=== PATIENT | male | born 1970 | race Caucasian/White ===

== ENCOUNTER 2018-08-18 07:48 | Day surgery (SDC) | payer BC ==
[2018-08-16 16:04] VITALS: BMI 29.0
[~2018-08-18 07:48] MED LIST: DEXAMETHASONE SOD PHOSPHATE 10 MG/ML 1 ML VIAL IV ONE; DEXAMETHASONE SOD PHOSPHATE 4 MG/ML 1 ML VIAL IV ONE; FAMOTIDINE 20 MG/2 ML VIAL IV ONE; HYDROmorphone 0.5 MG/0.5 ML SYRINGE IVP PRN; LACTATED RINGERS 1,000 ML IV SCH; MIDAZOLAM 2 MG/2 ML VIAL IV PRN; ONDANSETRON 4 MG/2 ML VIAL IVP ONE; SCOPOLAMINE 1.5MG/72HR PATCH TRANSDERM ONE
[2018-08-18] MEDS: OXYMETAZOLINE 0.05% NASL SPRAY 1 SPRAY BOTTLE NASAL ONE ×7 (08:11→08:29)
[2018-08-18 08:15] VITALS: RESP 16
[2018-08-18] MEDS: ONDANSETRON 4 MG/2 ML VIAL IVP ONE ×2 (08:16→08:23)
[2018-08-18] MEDS ORDERED: fentaNYL (PF) 50 MCG/ML 2 ML AMP ONE (08:43)
[2018-08-18] MEDS ORDERED: SUCCINYLCHOLINE CHLORIDE 100 MG/5 ML SYR IV ONE (08:43)
[2018-08-18] MEDS ORDERED: PROPOFOL 10 MG/ML 20 ML VIAL IV ONE (08:43)
[2018-08-18] MEDS ORDERED: DEXAMETHASONE SOD PHOS (MDV) 100 MG/10 ML VIAL ONE (08:43)
[2018-08-18] MEDS ORDERED: MIDAZOLAM 2 MG/2 ML VIAL ONE (08:43)
[2018-08-18] MEDS ORDERED: LIDOCAINE 1% INJ 10MG/ML (20 ML MDV) ONE (08:43)
[2018-08-18] MEDS ORDERED: BUPIVACAIN-EPI 0.5%-1:200,000 30 ML VIAL SQ ONE ×2 (09:03)
[2018-08-18] MEDS ORDERED: LIDOCAINE 1%-EPI 1:100,000 20 ML VIAL SQ ONE ×2 (09:03)
[2018-08-18 09:39] VITALS: TEMP 97.3
--- NOTE | 2018-08-18 09:41 | P.OP ---
Date of Procedure: 08/18/18 Preoperative Diagnosis: Eustachian tube dysfunction Chronic mastoiditis Chronic otitis media with effusion Hearing loss Bilateral hypertrophy of the inferior nasal turbinates Postoperative Diagnosis: Same Procedure(s) Performed: Bilateral direct microscopic tympanostomy and tube placement utilizing triune tubes Bilateral submucosal resection of the inferior turbinates with outfracturing compression Bilateral middle ear lavage Anesthesia: QUAN Surgeon: Victor Manuel Castanon Estimated Blood Loss (ml): 2 Pathology: none sent Condition: stable Disposition: PACU Indications for Procedure: This patient suffers from chronic eustachian tube dysfunction and has developed mastoid fluid. He has failed medical therapy and tympanostomy tube placement along with the balloon eustachian tuboplasty turbinate reduction in the middle ear lavage was planned. The balloon eustachian tuboplasty was denied by the insurance and the patient wished to proceed forward with the other procedures planned. All risks, benefits, and alternative therapies were discussed. Consent was obtained and all questions were answered. Operative Findings: Patient had bilateral middle ear effusions with some middle ear edema. Inferior turbinates were large and obstructive Description of Procedure: Prior to surgery, all risks, benefits, and alternative therapies were discussed again with the patient and family. Risks of bleeding, need for second tubes, perforation, early extrusion of tubes, etc. etc. were explained. All questions were answered and a consent was obtained. This patient was taken to the operative room and placed in the supine position. Mask inhalation anesthesia was performed by the department of anesthesia. The patient was monitored throughout the entire case by the department of anesthesia. Both tympanic membranes were visualized with an operating Zeiss microscope. Cerumen and epithelial debris was removed from the external auditory canals bilaterally. The tympanic membranes were visualized under an operative microscope. Tympanostomy incisions were made inferiorly. Fluid was suctioned from the middle ear space with use of a #3 and #5 Mccann suction with care to avoid any trauma to the middle ear structures. Ventilation tubes were then inserted bilaterally. We used triune tubes bilaterally. Excellent placement was obtained. The middle ear was lavaged with a 50% Betadine and saline solution. This was done bilaterally. Attention was then paid to the inferior turbinates. The bilateral inferior turbinates were hypertrophic and obstructive. We entered the anterior portion of the inferior turbinates with use of a microdebrider. We remove bone and submucosal elements with use of a microdebrider bilaterally. The inferior turbinates underwent a submucosal resection with removal of submucosal tissue and bone. We obtained a much better and normal in size for breathing. The inferior turbinates were then outfractured and compressed with a Webtrekkes nasal elevator. Excellent airway was obtained and was symmetric bilaterally. No bleeding was encountered. The patient was then taken to the recovery room in excellent condition by the department of anesthesia and monitored through the recovery process by the recovery room nurse supervised by anesthesia. A follow-up appointment has been scheduled.
[2018-08-18 10:43] VITALS: BP 113/77; PULSE 53
== END 2018-08-18 11:10 | disposition home or self-care (01) ==
LOC: OR 07:48
PROVIDERS: ATTEND Otolaryngology
DX: H70.13 Chronic mastoiditis, bilateral (principal); H65.493 Other chronic nonsuppurative otitis media, bilateral; H91.92 Unspecified hearing loss, left ear; H69.90 Unspecified Eustachian tube disorder, unspecified ear; J34.3 Hypertrophy of nasal turbinates; Z82.49 Family history of ischemic heart disease and other diseases of the circulatory system; Z91.09 Other allergy status, other than to drugs and biological substances
CPT/HCPCS: 69436; 30140; J2250; J1100 ×2; J2405; J2001; J3010; J0330; J2704

== ENCOUNTER → 2022-02-09 | Outpatient (CLI) | payer OTHER ==
--- NOTE | 2022-02-09 16:02 | XR ---
Left knee HISTORY: Left knee sprain, trauma 4 days prior, pain 3 views the left knee There is an enthesophyte at insertion of the quadriceps tendon. Bone mineralization, joint spaces, al ignment are maintained. No sizable joint effusion. No fracture or dislocation. IMPRESSION: No acute abnormality, consider MRI left knee.
== END | disposition home or self-care (01) ==
LOC: RADXRMAIN 15:34
PROVIDERS: ATTEND Emergency Medicine
DX: S83.92XA Sprain of unspecified site of left knee, initial encounter (principal); X58.XXXA Exposure to other specified factors, initial encounter

== ENCOUNTER → 2022-02-13 | Outpatient (CLI) | payer OTHER ==
--- NOTE | 2022-02-14 03:49 | MR ---
EXAMINATION TYPE: MR knee LT wo con DATE OF EXAM: 02/13/2022 COMPARISON: None HISTORY: Lt knee pain and swelling behind knee and in kneecap due to a fall on February 05, 2022 Multiplanar multiecho imaging of the left knee with no contrast. The anterior and posterior cruciate ligaments appear intact. There is a xuxt-or-slakhabh knee joint e ffusion. The collateral ligaments appear intact. There is a small vertical tear through the posterior horn medial meniscus extending to the inferior s urface. Lateral meniscus shows vertical tear through the anterior horn extending to the superior and inferior surfaces. No evidence for fracture. No bone edema. Patella is intact. IMPRESSION: Small tear in the posterior horn medial meniscus. Vertical tear through the anterior horn of the late ral meniscus. No evidence of ligamentous tear. Knee joint effusion. There is some degenerative thinni ng of the lateral meniscus and mild lateral joint space narrowing.
== END | disposition home or self-care (01) ==
LOC: RADMRIMAIN 11:20
PROVIDERS: ATTEND Emergency Medicine
DX: S83.282A Other tear of lateral meniscus, current injury, left knee, initial encounter (principal); S83.242A Other tear of medial meniscus, current injury, left knee, initial encounter; X58.XXXA Exposure to other specified factors, initial encounter

== ENCOUNTER 2022-03-26 10:01 | Day surgery (SDC) | payer BC, OTHER ==
--- NOTE | 2022-03-25 10:23 | P.HPOR ---
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 He slipped on some fiberglass. He twisted his knee. He has been having pain along with swelling and intermittent locking and buckling ever since. Review of Systems As per HPI Past Medical History Past Medical History: GERD/Reflux, Hearing Disorder / Deafness, Musculoskeletal Disorder Additional Past Medical History / Comment(s): past hx. pancreatitis, migraine HEADACHES, SENECA, seasonal allergies History of Any Multi-Drug Resistant Organisms: MRSA Date of last positivie culture/infection: 2001 MDRO Source:: Lip Past Surgical History: Ear Surgery, Heart Catheterization, Orthopedic Surgery Additional Past Surgical History / Comment(s): left Knee Arthroscopy x2, EGD, andrés. tubes in ears Past Anesthesia/Blood Transfusion Reactions: No Reported Reaction Smoking Status: Never smoker - Past Family History Mother Family Medical History: Cancer Additional Family Medical History / Comment(s): SKIN CANCER Medications and Allergies Home Medications Medication Instructions Recorded Confirmed Type Butalb/APAP/Caff 50-325-40Mg 1 tab PO Q4H PRN 03/25/22 03/25/22 History [Fioricet 50-325-40] Omeprazole [PriLOSEC] 20 mg PO QAM 03/25/22 03/25/22 History busPIRone HCL [Buspar] 7.5 mg PO DAILY 03/25/22 03/25/22 History Allergies Allergy/AdvReac Type Severity Reaction Status Date / Time No Known Allergies Allergy Verified 03/25/22 08:39 Physical Examination - Knee left Appearance: effusion Effusion grade: trace Pain: with flexion Gait: limping ROM: extension: -10 degrees ROM: flexion: 110 degrees Strength: extension: 5/5 Strength: flexion: 5/5 Meniscal tests: medial meniscal tests: positive Results The patient is a well-developed well-nourished male of mesomorphic habitus. HEENT exam is nonfocal, neck is supple. He has painless passive motion of his left hip. Straight leg raise is negative. On examination of his left knee, he is tender over the medial joint line. Collaterals are stable, Carmen was negative, Bertrand's causes medial pain. His distal neurovascular appears intact left lower extremity. - Diagnostic results Knee MRI: image reviewed (Left knee MRI shows evidence of a posterior medial meniscal tear, anterior lateral meniscal tear) Assessment and Plan Assessment: Left knee internal derangement/symptomatic medial meniscal tear Left knee mild medial compartment osteoarthrosis Plan: I talked to the patient at length regarding his condition along with treatment options. At this point is quite symptomatic having pain and mechanical symptoms after this acute injury. After a thorough discussion he opts to proceed with surgery. Risks and benefits were discussed at length in layman's terms. We will likely perform a left knee arthroscopy with partial medial meniscectomy as an outpatient procedure. Time with Patient: Less than 30
[~2022-03-26 10:01] MED LIST changes: -DEXAMETHASONE SOD PHOSPHATE 10 MG/ML 1 ML VIAL IV ONE; -FAMOTIDINE 20 MG/2 ML VIAL IV ONE; +SCOPOLAMINE 1 MG/72 HR PATCH TRANSDERM ONE; -SCOPOLAMINE 1.5MG/72HR PATCH TRANSDERM ONE
[2022-03-26] MEDS ORDERED: LIDOCAINE 1% (10MG/ML) FOR IV START INTRADERMA ONE (10:20)
[2022-03-26] MEDS ORDERED: SUCCINYLCHOLINE CHLORIDE 200 MG/10 ML VIAL IV ONE (11:17)
[2022-03-26] MEDS ORDERED: fentaNYL (PF) 50 MCG/ML 2 ML AMP ONE (11:17)
[2022-03-26] MEDS ORDERED: MIDAZOLAM 2 MG/2 ML VIAL ONE (11:17)
[2022-03-26] MEDS ORDERED: ROCURONIUM 10 MG/ML (5 ML VIAL) IV ONE (11:17)
[2022-03-26] MEDS ORDERED: PROPOFOL 10 MG/ML 20 ML VIAL IV ONE (11:17)
[2022-03-26] MEDS ORDERED: EPINEPHrine (PF) 1 ML in SODIUM CHLORIDE 0.9% IRRIGATIO 3,000 ML IRRIGATION ONE ×4 (11:23)
--- NOTE | 2022-03-26 12:05 | P.OP ---
Date of Procedure: 03/26/22 Preoperative Diagnosis: Left knee internal derangement Postoperative Diagnosis: Left knee posterior medial meniscal tear/anterior lateral meniscal tear Procedure(s) Performed: Left knee arthroscopic partial medial and lateral meniscectomies Anesthesia: JORGEA Surgeon: Taz Lopez Estimated Blood Loss (ml): 10 Pathology: none sent Condition: stable Disposition: PACU Indications for Procedure: The patient's a 51-year-old male who presents with progressive left knee pain and mechanical symptoms after an acute injury at work. A discussion of the risks and benefits of operative intervention versus conservative measures was made with patient. He opted to proceed with surgery. Operative risks to include infection, neurovascular injury, development of blood clots, possible incomplete resolution of symptoms, possible worsening symptoms and need for subsequent procedures was discussed. Informed consent was obtained. Operative Findings: As below Description of Procedure: The patient was brought to the operating room, and after induction of general anesthesia examined the left knee. Collaterals were stable, Carmen was negative, and posterior drawer was negative. The left lower extremity was prepped and draped in a normal fashion. A superior lateral portal was made through a 3 mm skin incision superior and lateral to the patella. This was used for outflow. A lateral portal was made through a 5 mm vertical skin incision lateral to the patella tendon above the joint line. Diagnostic arthroscopy was performed. On inspection of the medial compartment, and oblique tear involving the posterior horn medial meniscus was noted in the white-white junction. This was debrided back to a stable base with straight baskets and a motorized shaver. On inspection of the notch, the anterior cruciate ligament appeared to be intact. On inspection of the lateral compartment, a complex tear involving the anterior horn lateral meniscus was noted in the white-red junction. This was debrided back to stable base with straight baskets and a motorized shaver. The posterior horn appeared to be intact.. On inspection of the patellofemoral articulation, no significant cartilage pathology was noted.. The gutters were clear debris. The knee was then thoroughly irrigated. The portals were closed with Steri-Strips. A sterile dressing was applied in addition to a compression stocking. The patient was awoken from general anesthesia and transferred to recovery room in good condition. Blood loss was estimated at 10 mL. No complications were incurred.
[2022-03-26 12:29] VITALS: TEMP 97.5
[2022-03-26] MEDS ORDERED: HYDROcodone/APAP 5-325MG 1 EACH TAB ONE (13:13)
[2022-03-26] MEDS ORDERED: HYDROcodone/APAP 5-325MG 1 EACH TAB PO ONE (13:14)
[2022-03-26 13:49] VITALS: BP 119/79; PULSE 61; RESP 18
== END 2022-03-26 14:04 | disposition home or self-care (01) ==
LOC: OR 10:01
PROVIDERS: ATTEND Orthopaedic Surgery
DX: S83.242A Other tear of medial meniscus, current injury, left knee, initial encounter (principal); S83.282A Other tear of lateral meniscus, current injury, left knee, initial encounter; X50.1XXA Overexertion from prolonged static or awkward postures, initial encounter; K21.9 Gastro-esophageal reflux disease without esophagitis; H91.90 Unspecified hearing loss, unspecified ear; Z87.19 Personal history of other diseases of the digestive system; G43.909 Migraine, unspecified, not intractable, without status migrainosus; J30.2 Other seasonal allergic rhinitis; Z86.14 Personal history of Methicillin resistant Staphylococcus aureus infection; Z98.890 Other specified postprocedural states; Z80.8 Family history of malignant neoplasm of other organs or systems; Z79.899 Other long term (current) drug therapy
CPT/HCPCS: 29880; J2250; J0330; J1100; J0690; J2405; J0171; J3010; J2704

== ENCOUNTER → 2022-10-22 | Outpatient (CLI) | payer OTHER ==
--- NOTE | 2022-10-22 10:05 | XR ---
EXAMINATION TYPE: XR shoulder complete RT DATE OF EXAM: 10/22/2022 CLINICAL HISTORY: Trauma injury with pain TECHNIQUE: Three views of the right shoulder are obtained. COMPARISON: Right shoulder x-ray 2013 FINDINGS: There is no acute fracture/dislocation evident in the right shoulder. The acromioclavicul ar and glenohumeral joint spaces appear stable and within normal limits. The visualized ribs are int act and unremarkable. IMPRESSION: There is no acute fracture or dislocation in the right shoulder.
== END | disposition home or self-care (01) ==
LOC: RADXRMAIN 09:45
PROVIDERS: ATTEND Emergency Medicine
DX: S46.911A Strain of unspecified muscle, fascia and tendon at shoulder and upper arm level, right arm, initial encounter (principal); X58.XXXA Exposure to other specified factors, initial encounter

== ENCOUNTER → 2022-11-19 | Outpatient (CLI) | payer OTHER ==
--- NOTE | 2022-11-19 09:15 | MR ---
EXAMINATION TYPE: MR shoulder RT wo con DATE OF EXAM: 11/19/2022 COMPARISON: Radiograph 10/22/2022 HISTORY: 51-year-old male [id number] STRAIN UNSP MUSC/FASC/TEND, Right shoulder pain due to injury. TECHNIQUE: Multiplanar, multisequence imaging of the right shoulder is performed without contrast. FINDINGS: There is either interstitial or partial split tear of the intracapsular portion of the long head jessie ps tendon. There is slight thickening of the adjacent coracohumeral ligament up to 4 mm. Some degenerative signal of the adjacent superior labrum. No discrete labral tear or paralabral cyst by nonarthrographic technique. The glenohumeral joint is intact. There is mild thinning of mid glenoid articular cartilage and infer ior humeral head articular cartilage. The joint is otherwise intact without significant joint effusio n. There is moderate degenerative change at the AC joint. However, there is capsular swelling and capsul ar edema and trace effusion. Some degenerative subchondral signal change noted at the AC joint as wel l. No abnormal signal within the coracoclavicular ligaments. The hypertrophied capsule indents the un derlying myotendinous junction of the supraspinatus. There is a trace effusion in the subacromial/subdeltoid bursa with bursal sided fraying and scattered intrasubstance change along the supraspinatus tendon. Some additional articular sided fraying is als o present at the junction of the infraspinatus tendons. Heterogeneity and thickening of both supra and infraspinatus and infraspinatus tendons. Additional h eterogeneous signal of the subscapularis tendon. No high-grade partial or full-thickness tear is identified of the rotator cuff. No atrophy of the ro tator cuff musculature. No Hill-Sachs deformity or os acromiale. No suspicious bone marrow replacement. IMPRESSION: 1. Moderate diffuse rotator cuff tendinosis. No high-grade partial or full-thickness rotator cuff tea r. We do note prominent bursal sided fraying along the supraspinatus tendon as well as some areas of intrasubstance change. 2. Moderate AC joint OA but with prominent capsular swelling and edema. Findings could represent acut e exacerbation of underlying OA versus a low-grade AC joint sprain. Correlate for any point tendernes s. 3. Some mass effect onto the underlying cuff from the thickened AC joint may contribute to symptoms o f subacromial impingement. 4. Either an interstitial versus partial split tear of the intracapsular portion of the long head bic eps tendon. Slight thickening of the adjacent coracohumeral ligament could reflect a mild sprain of t he biceps nicolas.
== END | disposition home or self-care (01) ==
LOC: RADMRIMAIN 07:44
PROVIDERS: ATTEND Emergency Medicine
DX: S46.911D Strain of unspecified muscle, fascia and tendon at shoulder and upper arm level, right arm, subsequent encounter (principal); M19.011 Primary osteoarthritis, right shoulder; M67.813 Other specified disorders of tendon, right shoulder

== ENCOUNTER → 2023-02-11 | Day surgery (SDC) | payer BC, OTHER ==
[2023-02-08 14:31] VITALS: BMI 29.7
--- NOTE | 2023-02-10 08:23 | P.HPOR ---
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 He is having persistent pain with overhead use and at night ever since. He's tried conservative measures with therapy and medications with exacerbation of his symptoms. Review of Systems As per HPI Past Medical History Past Medical History: GERD/Reflux, Hearing Disorder / Deafness Additional Past Medical History / Comment(s): pancreatitis, HEADACHES, [place]I, TORN RT BICEP History of Any Multi-Drug Resistant Organisms: MRSA Date of last positivie culture/infection: 2001 MDRO Source:: Lip Past Surgical History: Cholecystectomy, Ear Surgery, Heart Catheterization, Orthopedic Surgery Additional Past Surgical History / Comment(s): left Knee Arthroscopy x2, EGD Past Anesthesia/Blood Transfusion Reactions: No Reported Reaction Smoking Status: Never smoker - Past Family History Mother Family Medical History: Cancer Additional Family Medical History / Comment(s): SKIN CANCER Medications and Allergies Home Medications Medication Instructions Recorded Confirmed Type Omeprazole [PriLOSEC] 20 mg PO DAILY 03/25/22 02/08/23 History busPIRone HCL [Buspar] 7.5 mg PO BID 03/25/22 02/08/23 History Butalb/Acetaminophen/Caffeine 1 cap PO QID PRN 09/08/22 02/08/23 History [Fioricet 50-300-40 mg Capsule] SUMAtriptan succinate [Imitrex] 25 mg PO BID PRN MDD 50mg 09/08/22 02/08/23 History Acetaminophen Tab [Tylenol] 650 mg PO Q6H #30 tab 09/22/22 02/08/23 Rx Ibuprofen [Motrin] 600 mg PO Q6HR PRN #40 tab 09/22/22 02/08/23 Rx Allergies Allergy/AdvReac Type Severity Reaction Status Date / Time No Known Allergies Allergy Verified 02/08/23 14:21 Physical Examination - Shoulder right Tenderness with palpation: anterior Pain: with abduction, with forward flexion ROM: forward flexion: 140 degrees ROM: internal rotation: lower lumbar ROM: external rotation: 40 degrees Crepitus with motion: Yes Strength: abduction: 5/5 (5-/5) Strength: external rotation: 5/5 (5-/5) Tests: internal impingement tests: positive, external impingment tests: positive Results The patient is a well-developed well-nourished male approximate 5 foot 6, 180 pounds of endomorphic habitus. HEENT exam is nonfocal, neck supple. On the right shoulder is tender about the anterior subacromial space in the bicipital groove. He has moderate crepitus. Impingement, Neer, and speed test are positive. His distal neurovascular exam appears intact in the right upper extremity. - Diagnostic results Shoulder MRI: image reviewed (Right shoulder MRI is reviewed and shows evidence of a bursal surface supraspinatus partial tear along with proximal biceps split tear.) Assessment and Plan Assessment: Right rotator cuff strain/possible partial-thickness tear Right proximal bicipital partial tear Plan: I talked to the patient regarding his condition along with treatment options. He's having persistent symptoms after this acute injury despite conservative measures. After thorough discussion he opts to proceed with surgery. We'll plan to proceed with right shoulder arthroscopic evaluation with probable subacromial decompression, rotator cuff debridement versus repair, possible biceps tenodesis versus tenotomy.
[~2023-02-11] MED LIST changes: +EPINEPHrine (PF) 1 ML in SODIUM CHLORIDE 0.9% IRRIGATIO 3,000 ML IRRIGATION ONE; +GLYCOPYRROLATE 0.2 MG/ML 2 ML VIAL ONE; +LACTATED RINGERS 1,000 ML IV ONE; +LIDOCAINE 1% (10MG/ML) FOR IV START INTRADERMA PRN; +LIDOCAINE 2% INJ 20 MG/ML (2 ML VIAL) ONE; +MIDAZOLAM 2 MG/2 ML VIAL IVP ONE; +MIDAZOLAM 2 MG/2 ML VIAL ONE; +NEOSTIGMINE 1 MG/ML 10 ML VIAL ONE; +PROPOFOL 10 MG/ML 20 ML VIAL IV ONE; +ROCURONIUM 10 MG/ML (5 ML VIAL) IV ONE; +ROPIVACAINE 5 MG/ML 30 ML VIAL ONE; -SCOPOLAMINE 1 MG/72 HR PATCH TRANSDERM ONE; +SUCCINYLCHOLINE CHLORIDE 200 MG/10 ML VIAL IV ONE; +ePHEDrine 50 MG/ML 1 ML VIAL ONE; +fentaNYL (PF) 50 MCG/ML 2 ML AMP IVP ONE
--- NOTE | 2023-02-11 09:03 | P.OP ---
Date of Procedure: 02/11/23 Preoperative Diagnosis: Right rotator cuff partial thickness tear/proximal biceps partial tear Postoperative Diagnosis: High-grade bursal surface tear anterior supraspinatus, partial-thickness tear intra-articular portion long head of the biceps Procedure(s) Performed: Right shoulder arthroscopic subacromial decompression/biceps tenodesis/rotator cuff repair Implants: Arthrex 4.75 mm swivel lock anchor 3 Anesthesia: JORGE, regional Surgeon: Taz Lopez Can Sterilizer #1: Dane Enamorado Estimated Blood Loss (ml): 10 Pathology: none sent Condition: stable Disposition: PACU Indications for Procedure: The patient's a 52-year-old male who presents with right shoulder pain and weakness after a previous acute injury. A discussion of the risks and benefits of operative intervention versus continued conservative measures was made with patient. He opted to proceed with surgery. Operative risks to include infection, neurovascular injury, development of blood clots, tendon rerupture, postoperative stiffness, and possible need for subsequent procedures was discussed. Informed consent was obtained. Operative Findings: As below Description of Procedure: The patient was brought to the operating room, and after induction of general anesthesia was placed in a beachchair position. A preoperative interscalene block was placed for postoperative analgesia. I examined the right shoulder. There was no gross block to passive motion or gross glenohumeral instability. The right upper extremity was prepped and draped in normal fashion. The bony outlines the acromion, distal clavicle, and coracoid process were outlined with a skin marker. The glenohumeral joint was inflated with 50 mL of saline utilizing a spinal needle from posterior approach. A posterior portal was made through a 5 mm skin incision 1 cm medial and inferior to the posterior lateral border time. A blunt trocar was used to easily into the joint. Diagnostic arthroscopy was performed. An anterior portal was made just lateral to the coracoid process entering the joint above the subscapularis tendon. The subscapularis tendon appeared to be intact. Anterior labrum was intact. The inferior recess was inspected. The posterior labrum was intact. There was a high-grade partial-thickness tear of the long head of the biceps involving interarticular portion. It was elected to proceed with tenodesis at this point. The biceps was captured with a loop intact technique. This was released from the superior labrum with electrocautery and was allowed to retract to the bicipital groove. This was tenodesed to the upper bicipital groove utilizing a 4.75 mm swivel lock anchor with good purchase. On inspection the rotator cuff, a high-grade partial-thickness tear involving the anterior aspect the supraspinatus was noted. This involved approximately 40% of the tendon thickness. The arthroscope was placed into the subacromial space. A lateral portal was made 2 centimeters inferior to the anterior lateral border of the acromion. The soft tissue on the undersurface of the acromion was debrided with a motorized shaver and electrocautery clearly defining the anterior medial and lateral borders as well as the distal clavicle. An anterior inferior acromioplasty was performed with a motorized leona starting anterolateral, then extending this posteriorly, then extending this medially. I converted to a flat acromion and this was verified in the posterior and lateral viewing portals. The rotator cuff was inspected. The anterior supraspinatus was partially torn on the bursal surface as well involving approximately 40% of the tendon thickness. The tear was completed with a motorized shaver. This measured approximately 1 cm. The greater tuberosity was lightly decorticating with a shaver down to a bleeding bony surface. An accessory superior lateral portal was made just off the lateral edge of the acromion for anchor placement. A 4.75 mm swivel lock anchor was then placed just off the articular surface with the appropriate starting awl. The preloaded #2 fiber tape was passed through the rotator cuff with a scorpion suture passer. A fiber link was placed as well. A 4.75 mm swivel lock anchor was placed laterally with good purchase utilizing the sutures. Final arthroscopic view showed adequate compression at the footprint. The arthroscope was then removed. The portals were closed with simple 3-0 nylon sutures. A sterile dressing was applied in addition to an abductor brace. The patient was then awoken from general anesthesia and transferred to recovery room in good condition. Blood loss was estimated at 10 mL. No complications were incurred. Sponge and needle counts were correct in the case. Dane DURAN assisted and the major components of the case to include arm positioning, anchor placement, and rotator cuff repair.
[2023-02-11 09:10] VITALS: TEMP 98
[2023-02-11 09:17] VITALS: RESP 16
[2023-02-11 10:10] VITALS: BP 128/77; PULSE 53
--- NOTE | 2023-02-11 17:26 | P.ANPRN ---
Procedure Note - Anesthesia - Nerve Block Performed Right Interscalene Time Out Performed: Yes (06:54) Date of Procedure: 02/11/23 Procedure Start Time: 54 Procedure Stop Time: :59 Location of Patient: PreOp Indication: Acute Post-Operative Pain, Requested by Surgeon (DR Lopez) Sedation Type: Sedate with meaningful contact maintained Preparation: Sterile Prep Position: Supine Catheter: None Needle Types: Pajunk Needle Gauge: Other (see comment) (22g) Ultrasound used to visualize needle placement: Yes Ultrasound used to observe medication spread: Yes Injectate: 0.5% Ropivacaine (see comment for volume) (20cc) Blood Aspirated: No Pain Paresthesia on Injection Noted: No Resistance on Injection: Normal Image Stored and Saved: Yes Events: Uneventful and Well Tolerated
== END | disposition home or self-care (01) ==
LOC: OR 05:40
PROVIDERS: ATTEND Orthopaedic Surgery
DX: S46.221A Laceration of muscle, fascia and tendon of other parts of biceps, right arm, initial encounter (principal); M75.111 Incomplete rotator cuff tear or rupture of right shoulder, not specified as traumatic; M75.41 Impingement syndrome of right shoulder; G89.18 Other acute postprocedural pain; K21.9 Gastro-esophageal reflux disease without esophagitis; Z90.49 Acquired absence of other specified parts of digestive tract; Z79.899 Other long term (current) drug therapy; X58.XXXA Exposure to other specified factors, initial encounter
CPT/HCPCS: 64415; 29827; 29826; 29828; C1713 ×3; C1894; J2250; J0330; J1100; J2710; J0690; J2405; J0171; J3010; J2795; J2704; J2001

== ENCOUNTER → 2023-10-13 | Outpatient (CLI) | payer OTHER ==
--- NOTE | 2023-10-13 14:37 | XR ---
EXAMINATION TYPE: XR chest 2V DATE OF EXAM: 10/13/2023 COMPARISON: NONE TECHNIQUE: PA and lateral views submitted. HISTORY: Cough and fever FINDINGS: The lungs are clear and there is no pneumothorax, pleural effusion, or focal pneumonia. Heart size normal and no overt failure. Osseous structures intact. IMPRESSION: 1. No acute process.
== END | disposition home or self-care (01) ==
LOC: RADXRMAIN 13:42
PROVIDERS: ATTEND Internal Medicine
DX: R05.1 Acute cough (principal); R50.9 Fever, unspecified
CPT/HCPCS: 71046

== ENCOUNTER 2024-03-24 14:26 | Emergency (ER) | payer OTHER ==
[2024-03-24] MEDS: diphenhydrAMINE 50 MG/ML 1 ML VIAL IVP STA (15:20)
[2024-03-24] MEDS: KETOROLAC 15 MG/ML 1 ML VIAL IVP STA (15:20)
[2024-03-24] MEDS: METOCLOPRAMIDE 5 MG/ML 2 ML VIAL IVP STA (15:21)
[2024-03-24] MEDS: ACETAMINOPHEN TAB 500 MG TAB PO STA (15:22)
[2024-03-24] MEDS: MAGNESIUM SULFATE-D5W PMX 1 GM in DEXTROSE/WATER 1 100ML.BAG IVPB ONE (15:24)
--- NOTE | 2024-03-24 15:57 | ED ---
General Adult HPI - General Chief complaint: Headache Stated complaint: migraine Time Seen by Provider: 03/24/24 14:58 Source: patient Mode of arrival: ambulatory Limitations: no limitations - History of Present Illness Initial comments: Patient is a 53-year-old gentleman past medical history migraine headaches presenting today for migraine. Patient states is ongoing for the last 3 days. He has tried his home Fioricet and tracks without relief from his headache. States it feels like a screwdriver going into the right side of his head. Feels like prior migraines. Endorses nausea but no vomiting. No changes in vision, numbness weakness or slurred speech. No fevers or neck stiffness. No chest pain, shortness of breath abdominal pain or vomiting. - Related Data Home Medications Medication Instructions Recorded Confirmed Omeprazole [PriLOSEC] 20 mg PO DAILY 03/25/22 02/11/23 busPIRone HCL [Buspar] 7.5 mg PO BID 03/25/22 02/11/23 Butalb/Acetaminophen/Caffeine 1 cap PO QID PRN 09/08/22 02/11/23 [Fioricet 50-300-40 mg Capsule] SUMAtriptan succinate [Imitrex] 25 mg PO BID PRN MDD 50mg 09/08/22 02/11/23 Previous Rx's Medication Instructions Recorded Acetaminophen Tab [Tylenol] 650 mg PO Q6H #30 tab 09/22/22 Ibuprofen [Motrin] 600 mg PO Q6HR PRN #40 tab 09/22/22 HYDROcodone/APAP 7.5-325MG [[place] 1 each PO Q6HR PRN #28 tab 02/11/23 7.5] Allergies Allergy/AdvReac Type Severity Reaction Status Date / Time No Known Allergies Allergy Verified 03/24/24 14:44 Review of Systems ROS Statement: Those systems with pertinent positive or pertinent negative responses have been documented in the HPI. Past Medical History Past Medical History: GERD/Reflux, Hearing Disorder / Deafness Additional Past Medical History / Comment(s): pancreatitis, HEADACHES, RUBY, TORN RT BICEP History of Any Multi-Drug Resistant Organisms: MRSA Date of last positivie culture/infection: 2001 MDRO Source:: Lip Past Surgical History: Cholecystectomy, Ear Surgery, Heart Catheterization, Orthopedic Surgery Additional Past Surgical History / Comment(s): left Knee Arthroscopy x2, EGD Past Anesthesia/Blood Transfusion Reactions: No Reported Reaction Past Psychological History: No Psychological Hx Reported Smoking Status: Never smoker Past Alcohol Use History: None Reported Past Drug Use History: None Reported - Past Family History Mother Family Medical History: Cancer Additional Family Medical History / Comment(s): SKIN CANCER General Exam - General Exam Comments Initial Comments: PE: CONSTITUTIONAL: No apparent distress, well appearing SKIN: Warm, dry, no jaundice, hives or petechiae EYES: Pupils are equally round, extraocular movements intact without nystagmus, clear conjunctiva, non-icteric sclera HENT: Normocephalic, atraumatic, moist mucus membranes, oropharynx clear without exudates NECK: , Full range of motion, normal appearance PULMONARY: Clear to auscultation without wheezes, rhonchi, or rales, normal excursion, no accessory muscle use and no stridor CARDIOVASCULAR: Regular rate, rhythm, normal S1 and S2. No appreciated murmurs, rubs or gallops. Strong radial pulses with intact distal perfusion. No lower extremity edema GASTROINTESTINAL: Soft, non-tender, non-distended, no palpable masses, no rebound or guarding. No hepatosplenomegaly MUSCULOSKELETAL: Extremities have no gross deformity, no edema, redness, or swelling. No calf swelling ot TTP. NEUROLOGIC:_a/o x 3, GCS 15, normal mentation and speech. Moves all extremities x 4 without motor or sensory deficit, cranial nerves: II (visual story without defects), III, IV and (extraocular movements are intact, pupils are equal with normal reaction to light), V (intact facial sensation and jaw opening), VII (no facial droop), IX and X (normal palate movement, midline uvula, normal voice), XI (symmetrical shoulder shrug and lateral head rotation against resistance), XII (midline tongue protrusion). Motor strength is 5/5 in all extremities. No abnormal movements. Normal muscle tone. Sensation to light touch is intact bilaterally. PSYCHIATRIC:_normal mood and affect, thought process is clear and linear Limitations: no limitations Course Vital Signs 03/24/24 03/24/24 03/24/24 14:42 17:03 17:54 Temperature 98.1 F 97.9 F 97.9 F Pulse Rate 60 82 56 L Respiratory 16 18 18 Rate Blood Pressure 123/82 122/72 128/83 O2 Sat by Pulse 97 97 99 Oximetry Medical Decision Making - Medical Decision Making Was pt. sent in by a medical professional or institution (RENEE Broussard, CONSULTING GROUP ANALYST, urgent care, hospital, or prison...) When possible be specific @ -No Did you speak to anyone other than the patient for history (EMS, parent, family, police, friend...)? What history was obtained from this source @ -No Did you review nursing and triage notes (agree or disagree)? Why? @ -I reviewed and agree with nursing and triage notes Differential Diagnosis (chest pain, altered mental status, abdominal pain women, abdominal pain men, vaginal bleeding, weakness, fever, dyspnea, syncope, headache, dizziness, GI bleed, back pain, seizure, CVA, palpatations, mental health, musculoskeletal)? @ -Differential diagnosis remains broad however top considerations include migraine headache, tension today, cluster headache, this is not all-inclusive list X-rays interpreted by me (1pt min.). @ -None done CT interpreted by me (1pt min.). @ -None done U/S interpreted by me (1pt. min.). @ -None done What testing was considered but not performed or refused? (CT, X-rays, U/S, labs)? Why? @ -None What meds were considered but not given or refused? Why? @ -None Did you discuss the management of the patient with other professionals (professionals i.e. RENEE Broussard, CONSULTING GROUP ANALYST, lab, RT, psych nurse, social staff worker, passenger barge master, teacher, credit administration officer, correctional case records supervisor)? Give summary @ -No Was smoking cessation discussed for >3mins.? @ -No Was critical care preformed (if so, how long)? @ -No Were there social determinants of health that impacted care today? How? (Homelessness, low income, unemployed, alcoholism, drug addiction, t ransportation, low edu. Level, literacy, decrease access to med. care, shelter, rehab)? @ -No Was there de-escalation of care discussed even if they declined (Discuss DNR or withdrawal of care, Hospice)? @ -No What co-morbidities impacted this encounter? (DM, HTN, Smoking, COPD, CAD, Cancer, CVA, ARF, Chemo, Hep., AIDS, mental health diagnosis, sleep apnea, morbid obesity)? @ -None Was patient admitted / discharged? Hospital course, mention meds given and route, prescriptions, significant lab abnormalities, going to OR and other pertinent info. @ -Hospital course is a pleasant 53-year-old gentleman past medical history migraines presenting for migraine headache x 3 days states prior to that is like prior migraines no neurodeficits no fevers no neck stiffness. Will begin with migraine cocktail and reassess. Patient agreeable with plan. On reassessment patient endorses improvement of symptoms and is ready for discharge. In my medical judgment there is currently no evidence of an immediate life- threatening or surgical condition. Discharge is therefore indicated at this time. Discharge treatment instructions, follow up instructions, and appropriate emergency department return precautions were discussed with the patient and/or medical decision maker. Patient and/or medical decision maker expressed understanding of and agreed with the treatment plan, follow up instructions, and emergency department return precaution. All patient's and/or medical decision maker's questions were answered. Undiagnosed new problem with uncertain prognosis? @ -No Drug Therapy requiring intensive monitoring for toxicity (Heparin, Nitro, Insulin, Cardizem)? @ -No Were any procedures done? @ -No Diagnosis/symptom? @ -Non-intractable migraine Acute, or Chronic, or Acute on Chronic? @ -Default Uncomplicated (without systemic symptoms) or Complicated (systemic symptoms)? @Uncomplicated Side effects of treatment? @ -No Exacerbation, Progression, or Severe Exacerbation? @ -No Poses a threat to life or bodily function? How? (Chest pain, [place], [place], pneumonia, PE, COPD, DKA, ARF, appy, cholecystitis, CVA, Diverticulitis, Homicidal, Suicidal, threat to staff... and all critical care pts) @ -No Disposition Clinical Impression: Nonintractable migraine Disposition: HOME SELF-CARE Condition: Good Instructions (If sedation given, give patient instructions): Acute Headache (ED) Additional Instructions: Every disease is a spectrum and a small chance still exists that a serious condition could develop, for this reason, please monitor yourself closely for new, changing or worsening symptoms, symptoms that persist beyond the usual length of your typical migraines, changes in vision, slurred speech, confusion, new numbness or weakness, fevers, inability to tolerate/keep down fluids or your medications, inability to follow up with outpatient providers as instructed and should you experience these symptoms or should you have any further concerns for your wellbeing please return to the ED or call 911 immediately. PLEASE call your primary care physician as soon as possible to arrange / discuss plan for followup appointment. Appointment in the next 1-3 days is strongly encouraged if possible. PLEASE let us know here before you leave if there is anything further we can do to be of any assistance. Take care and feel Better! Is patient prescribed a controlled substance at d/c from ED?: No Referrals: Mandeep Barnes DO [Primary Care Provider] - 1-2 days Decision Time: 17:29
[2024-03-24] MEDS: DEXTROSE 5%-0.45% NACL 1,000 ML IV ONE (16:27)
[2024-03-24 17:05] VITALS: RESP 18; TEMP 97.9
[2024-03-24 17:56] VITALS: BP 128/83; PULSE 56
== END 2024-03-24 17:57 | disposition home or self-care (01) ==
LOC: EC 14:26
DX: G43.909 Migraine, unspecified, not intractable, without status migrainosus (principal)
CPT/HCPCS: 99284

== ENCOUNTER 2024-05-05 15:01 | Emergency (ER) | payer MEDICARE, OTHER ==
--- NOTE | 2024-05-05 15:16 | ED ---
Lower Extremity Injury HPI - General Chief Complaint: Extremity Injury, Lower Stated Complaint: R ankle pain Time Seen by Provider: 05/05/24 15:06 Source: patient, family, RN notes reviewed Mode of arrival: wheelchair Limitations: no limitations - History of Present Illness Initial Comments: This is a 53-year-old male who presents to the emergency department for right ankle pain. Patient states that he went to step up into a truck earlier today and felt a pop in his right ankle. He was then struggling to move it. Since then he has continued to feel more pops in the ankle followed by pain. He has since had difficulty ambulating. He has not noticed any swelling. He has not yet taken anything for pain. MD Complaint: ankle injury - Related Data Home Medications Medication Instructions Recorded Confirmed Omeprazole [PriLOSEC] 20 mg PO DAILY 03/25/22 02/11/23 busPIRone HCL [Buspar] 7.5 mg PO BID 03/25/22 02/11/23 Butalb/Acetaminophen/Caffeine 1 cap PO QID PRN 09/08/22 02/11/23 [Fioricet 50-300-40 mg Capsule] SUMAtriptan succinate [Imitrex] 25 mg PO BID PRN MDD 50mg 09/08/22 02/11/23 Previous Rx's Medication Instructions Recorded Acetaminophen Tab [Tylenol] 650 mg PO Q6H #30 tab 09/22/22 Ibuprofen [Motrin] 600 mg PO Q6HR PRN #40 tab 09/22/22 HYDROcodone/APAP 7.5-325MG [[place] 1 each PO Q6HR PRN #28 tab 02/11/23 7.5] Allergies Allergy/AdvReac Type Severity Reaction Status Date / Time No Known Allergies Allergy Verified 03/24/24 14:44 Review of Systems ROS Statement: Those systems with pertinent positive or pertinent negative responses have been documented in the HPI. ROS Other: All systems not noted in ROS Statement are negative. Past Medical History Past Medical History: GERD/Reflux, Hearing Disorder / Deafness Additional Past Medical History / Comment(s): pancreatitis, HEADACHES, MECHOOPDA, TORN RT BICEP History of Any Multi-Drug Resistant Organisms: MRSA Date of last positivie culture/infection: 2001 MDRO Source:: Lip Past Surgical History: Cholecystectomy, Ear Surgery, Heart Catheterization, Orthopedic Surgery Additional Past Surgical History / Comment(s): left Knee Arthroscopy x2, EGD Past Anesthesia/Blood Transfusion Reactions: No Reported Reaction Past Psychological History: No Psychological Hx Reported Smoking Status: Never smoker Past Alcohol Use History: None Reported Past Drug Use History: None Reported - Past Family History Mother Family Medical History: Cancer Additional Family Medical History / Comment(s): SKIN CANCER General Exam Limitations: no limitations General appearance: alert, in no apparent distress Head exam: Present: atraumatic, normocephalic, normal inspection Respiratory exam: Present: normal lung sounds bilaterally. Absent: respiratory distress, wheezes, rales, rhonchi, stridor Cardiovascular Exam: Present: regular rate, normal rhythm, normal heart sounds. Absent: systolic murmur, diastolic murmur, rubs, gallop, clicks Extremities exam: Present: other (Mild tenderness over the right lateral malleolus. No swelling. Full range of motion. 2+ DP and PT pulses.) Neurological exam: Present: alert, oriented X3, CN II-XII intact Psychiatric exam: Present: normal affect, normal mood Skin exam: Present: warm, dry, intact, normal color. Absent: rash Course Vital Signs 05/05/24 05/05/24 15:02 16:56 Temperature 98.5 F 98.2 F Pulse Rate 70 76 Respiratory 20 18 Rate Blood Pressure 134/87 136/92 O2 Sat by Pulse 98 98 Oximetry Medical Decision Making - Medical Decision Making This is a 53-year-old male who presents to the emergency department for right ankle pain. Was pt. sent in by a medical professional or institution? @ -No Did you speak to anyone other than the patient for history? @ -No Did you review nursing and triage notes? @ -Yes, and I agree, it is accurate with regards to the patient's symptoms. Were old charts reviewed? @ -No Differential Diagnosis? @ -Differential Musculoskeletal: Muscular strain, contusion, ligament sprain, fracture, arthritis, septic arthritis, bursitis, cellulitis, muscle spasm, nerve compression, DVT, arterial occlusion, herpes zoster, electrolyte abnormality, tumor.... This is not meant to be in all inclusive list EKG interpreted by me (3pts min.)? @ -Not obtained X-rays interpreted by me (1pt min.)? @ -X-ray of the right ankle obtained. My interpretation identifies no acute fractures. CT interpreted by me (1pt min.)? @ -Not obtained U/S interpreted by me (1pt. min.)? @ -Not obtained What testing was considered but not performed? (CT, X-rays, U/S, labs)? Why? @ -None What meds were considered but not given? Why? @ -None Did you discuss the management of the patient with other professionals? @ -No Did you reconcile home meds? @ -No Was smoking cessation discussed for >3mins.? @ -No Was critical care preformed (if so, how long)? @ -No Were there social determinants of health that impacted care today? How? (Homelessness, low income, unemployed, alcoholism, drug addiction, transportation, low edu. Level, literacy, decrease access to med. care, custodial, rehab)? @ -No Was there de-escalation of care discussed even if they declined? (Discuss DNR or withdrawal of care, Hospice)? @ -No What co-morbidities impacted this encounter? (DM, HTN, Smoking, COPD, CAD, Cancer, CVA, Hep., AIDS, mental health diagnosis, sleep apnea, morbid obesity)? @ -None Was patient admitted / discharged? @ -Discharged. X-ray of the right ankle obtained revealing no acute process. Symptoms likely related to an ankle sprain. Pain was managed in the emergency department. Velcro stirrup splint provided. Advised ibuprofen and Tylenol as needed for pain relief as well as ice and elevation. Patient discharged home in stable condition. Case discussed with ED attending Dr. Chandler. Return precautions reviewed in depth, the patient is instructed to return to the emergency department with any new, worsening, or concerning symptoms. Patient verbalized understanding. Undiagnosed new problem with uncertain prognosis? @ -None Drug Therapy requiring intensive monitoring for toxicity (Heparin, Nitro, Insulin, Cardizem)? @ -None Were any procedures done? @ -None Diagnosis/symptom? @ -Right ankle sprain Acute, or Chronic, or Acute on Chronic? @ -Acute Uncomplicated (without systemic symptoms) or Complicated (systemic symptoms)? @ -Uncomplicated Side effects of treatment? @ -None Exacerbation, Progression, or Severe Exacerbation] @ -Not applicable Poses a threat to life or bodily function? @ -No - Radiology Data Radiology results: report reviewed, image reviewed Disposition Clinical Impression: Right ankle sprain Disposition: HOME SELF-CARE Instructions (If sedation given, give patient instructions): Ankle Sprain (ED) Additional Instructions: Return to the emergency department with any new, worsening, or concerning symptoms. Alternate with ibuprofen and Tylenol as needed for pain relief. Apply ice and keep the leg elevated. Follow up with your primary care provider in 1-2 days. Is patient prescribed a controlled substance at d/c from ED?: No Referrals: Mandeep Barnes DO [Primary Care Provider] - 1-2 days Time of Disposition: 16:42
[2024-05-05] MEDS: IBUPROFEN 800 MG TAB PO STA (15:21)
[2024-05-05] MEDS: HYDROcodone/APAP 7.5-325MG 1 EACH TAB PO ONE (15:21)
--- NOTE | 2024-05-05 16:35 | XR ---
EXAMINATION TYPE: XR ankle complete RT DATE OF EXAM: 05/05/2024 COMPARISON: None HISTORY: Pain fall TECHNIQUE: 3 view right ankle FINDINGS: No acute fracture or dislocation evident. Ankle mortise is intact. Soft tissues are normal. Plantar calcaneal heel spur is present. Tiny Achilles tendon calcaneal heel spur is present. Follow up exams can be performed 7-10 days from acute trauma for continued pain. IMPRESSION: 1. No acute osseous abnormality right ankle [facility] Lauren Bansal, Workstation: [facility], 05/05/2024 4:33 PM
[2024-05-05] MEDS: IBUPROFEN 600 MG STARTER PACK 4 TAB BTL PO STA (16:48)
[2024-05-05] MEDS: ACET/COD 300 MG/30 MG STARTER PACK 6 TAB BTL PO STA (16:48)
[2024-05-05 16:58] VITALS: BP 136/92; PULSE 76; RESP 18; TEMP 98.2
== END 2024-05-05 16:56 | disposition home or self-care (01) ==
LOC: EC 15:01
CPT/HCPCS: 99284

== ENCOUNTER → 2024-05-08 | Outpatient (CLI) | payer MEDICARE ==
[2024-05-08 15:12] LABS: Basophils # (A) 0.06 X 10*3/uL (0.00-0.10); Basophils % (A) 0.7 %; Eosinophils # (A) 0.12 X 10*3/uL (0.04-0.35); Eosinophils % (A) 1.4 %; HCT 48.4 % (39.6-50.0); Lymphocytes # (A) 2.45 X 10*3/uL (0.90-5.00); Lymphocytes % (A) 27.9 %; MCHC 33.1 g/dL (32.0-37.0); MCV 84.8 FL (80.0-97.0); Mean Platelet Volume 10.2 FL (9.5-12.2); Monocytes # (A) 0.77 X 10*3/uL (0.20-1.00); Monocytes % (A) 8.8 %; NRBC Per 100 WBC 0 X 10*3/uL (0.00-0.01); Neutrophils # (A) 5.35 X 10*3/uL (1.80-7.70); Platelet Count 336 X 10*3/uL (140-440); RBC 5.71 X 10*6/uL (4.40-5.60); RDW 12.2 % (11.5-14.5); WBC 8.77 X 10*3/uL (4.50-10.00)
[2024-05-08 15:42] LABS: ALT 22 U/L (10-49); AST 24 U/L (14-35); Albumin 4.4 g/dL (3.8-4.9); Albumin/Globulin Ratio 1.63 Ratio (1.60-3.17); Alkaline Phosphatase 91 U/L (41-126); BUN/Creat Ratio 14.33 Ratio (12.00-20.00); Blood Urea Nitrogen 17.2 mg/dL (9.0-27.0); Chloride 102 mmol/L (96-109); Chol/HDL Ratio 5.52 Ratio; Globulin 2.7 g/dL (1.6-3.3); Glucose 106 mg/dL (70-110); LDL Cholesterol,Calculated 105.4 mg/dL (0.0-131.0); Magnesium 1.9 mg/dL (1.5-2.4); Potassium 4.8 mmol/L (3.5-5.5); Prostate Specific Antigen 0.32 ng/mL (0.000-3.500); Sodium 139 mmol/L (135-145); Total Bilirubin 1.7 mg/dL (0.3-1.2); Total Protein 7.1 g/dL (6.2-8.2)
== END | disposition home or self-care (01) ==
LOC: LABWHC1 10:52
PROVIDERS: ATTEND Internal Medicine
CPT/HCPCS: 36415; 80053; 80061; 83036; 83735; 84153; 84443; 85025

== ENCOUNTER 2024-09-19 16:41 | Emergency (ER) | payer MEDICARE, OTHER ==
[2024-09-19 17:06] VITALS: TEMP 97.7
--- NOTE | 2024-09-19 17:45 | ED ---
Extremity Problem HPI - General Source: patient, RN notes reviewed Mode of arrival: ambulatory Limitations: no limitations <Naima Enciso - Last Filed: 09/19/24 17:43> <Lucie Riojas - Last Filed: 09/22/24 15:02> - General Chief complaint: Extremity Problem,Nontraumatic Stated complaint: L shoulder pain Time Seen by Provider: 09/19/24 17:43 - History of Present Illness Initial comments: Quick [id number] male presenting for left shoulder pain x 3 hours. States he has been taking care of his who is paralyzed however denies specific trauma or injury. Denies chest pain or shortness of breath. Took ibuprofen however did not relieve pain. (FernieNaima) Patient is a pleasant 53-year-old gentleman presenting today for left shoulder pain. Patient states that he was lifting a heavy bag of rocks yesterday that he had thrown over his left shoulder he did not experience any pain at this time. He assists in caring for his fiance who is disabled and assist with moving her. This afternoon he had a migraine headache and also noticed soreness in his left shoulder. He has had issues with his right shoulder in the past but not his left. It feels like something is "grinding in his shoulder". He is concerned that had a rotator cuff injury. He denies any additional injuries or trauma to his shoulder. He took his home migraine medications which resolved his migraine however did not help his shoulder. He took 400 mg ibuprofen at 2:00 without improvement. He denies redness, swelling or rash additional recent trauma. He denies chest pain or shortness of breath. No history of CAD. No history hypertension or diabetes. Denies diaphoresis, nausea, vomiting abdominal pain fevers or chills (Lucie Riojas) - Related Data Home Medications Medication Instructions Recorded Confirmed Omeprazole [PriLOSEC] 20 mg PO DAILY 03/25/22 02/11/23 busPIRone HCL [Buspar] 7.5 mg PO BID 03/25/22 02/11/23 Butalb/Acetaminophen/Caffeine 1 cap PO QID PRN 09/08/22 02/11/23 [Fioricet 50-300-40 mg Capsule] SUMAtriptan succinate [Imitrex] 25 mg PO BID PRN MDD 50mg 09/08/22 02/11/23 Previous Rx's Medication Instructions Recorded Acetaminophen Tab [Tylenol] 650 mg PO Q6H #30 tab 09/22/22 Ibuprofen [Motrin] 600 mg PO Q6HR PRN #40 tab 09/22/22 HYDROcodone/APAP 7.5-325MG [Farnham 1 each PO Q6HR PRN #28 tab 02/11/23 7.5] Allergies Allergy/AdvReac Type Severity Reaction Status Date / Time No Known Allergies Allergy Verified 09/19/24 17:06 Review of Systems ROS Other: All systems not noted in ROS Statement are negative. <Naima Enciso - Last Filed: 09/19/24 17:43> ROS Other: All systems not noted in ROS Statement are negative. <Lucie Riojas - Last Filed: 09/22/24 15:02> ROS Statement: Those systems with pertinent positive or pertinent negative responses have been documented in the HPI. Past Medical History Past Medical History: GERD/Reflux, Hearing Disorder / Deafness Additional Past Medical History / Comment(s): pancreatitis, HEADACHES, [place], TORN RT BICEP History of Any Multi-Drug Resistant Organisms: MRSA Date of last positivie culture/infection: 2001 MDRO Source:: Lip Past Surgical History: Cholecystectomy, Ear Surgery, Heart Catheterization, Orthopedic Surgery Additional Past Surgical History / Comment(s): left Knee Arthroscopy x2, EGD Past Anesthesia/Blood Transfusion Reactions: No Reported Reaction Past Psychological History: No Psychological Hx Reported Smoking Status: Never smoker Past Alcohol Use History: None Reported Past Drug Use History: None Reported - Past Family History Mother Family Medical History: Cancer Additional Family Medical History / Comment(s): SKIN CANCER <Naima Enciso - Last Filed: 09/19/24 17:43> General Exam Limitations: no limitations <Naima Enciso - Last Filed: 09/19/24 17:43> <Lucie Riojas - Last Filed: 09/22/24 15:02> - General Exam Comments Initial Comments: Visual Physical Exam Vital signs reviewed General: Well-appearing, nontoxic, no acute distress. Head: Normocephalic, atraumatic Eyes: PERRLA, EOMI ENT: Airway patent Chest: Nonlabored breathing Skin: No visual rash, normal skin tone Neuro: Alert and oriented 3 Musculoskeletal: No gross abnormalities (Naima Enciso) PE: CONSTITUTIONAL: No apparent distress, well appearing SKIN: Warm, dry, no jaundice, hives or petechiae, no bruising or abrasions EYES: Pupils are equally round, extraocular movements intact without nystagmus, clear conjunctiva, non-icteric sclera HENT: Normocephalic, atraumatic, moist mucus membranes, oropharynx clear without exudates NECK: , Full range of motion, normal appearance PULMONARY: Clear to auscultation without wheezes, rhonchi, or rales, normal excursion, no accessory muscle use and no stridor CARDIOVASCULAR: Regular rate, rhythm, normal S1 and S2. No appreciated murmurs, rubs or gallops. Strong radial pulses with intact distal perfusion. No lower extremity edema GASTROINTESTINAL: Soft, active bowel sounds throughout, non-tender, non- distended, no palpable masses, no rebound or guarding. No hepatosplenomegaly MUSCULOSKELETAL: Extremities have no gross deformity, no edema, redness, or swelling, pt notes pain with abduction of left shoulder and mild TTP anterior left shoulder joint line, able to range affected extremity through full ROM NEUROLOGIC:_a/o x 3, GCS 15, normal mentation and speech. Moves all extremities x 4 without motor or sensory deficit PSYCHIATRIC:_normal mood and affect, thought process is clear and linear (Lucie Riojas) Course Vital Signs 09/19/24 09/19/24 17:03 20:03 Temperature 97.7 F Pulse Rate 59 L 57 L Respiratory 18 17 Rate Blood Pressure 150/84 149/93 O2 Sat by Pulse 98 97 Oximetry Medical Decision Making <Naima Enciso - Last Filed: 09/19/24 17:43> - Lab Data Result diagrams: 09/19/24 19:05 09/19/24 19:05 <Lucie Riojas - Last Filed: 09/22/24 15:02> - Medical Decision Making I completed the quick note portion of this chart signed Naima Enciso PA-C (Naima Enciso) Was pt. sent in by a medical professional or institution (RENEE Broussard, DECORATING INSTRUCTOR, urgent care, hospital, or long-term...) When possible be specific @ -No Did you speak to anyone other than the patient for history (EMS, parent, family, police, friend...)? What history was obtained from this source @ -No Did you review nursing and triage notes (agree or disagree)? Why? @ -I reviewed nursing and triage notes Were old charts reviewed (outside hosp., previous admission, EMS record, old EKG, old radiological studies, urgent care reports/EKG's, long-term records)? Report findings @ -Medical records reviewed Differential Diagnosis (chest pain, altered mental status, abdominal pain women, abdominal pain men, vaginal bleeding, weakness, fever, dyspnea, syncope, headache, dizziness, GI bleed, back pain, seizure, CVA, palpatations, mental health, musculoskeletal)? Differential Musculoskeletal Muscular strain, contusion, ligament sprain, fracture, arthritis, septic arthritis, bursitis, cellulitis, muscle spasm, nerve compression, herpes zoster.... This is not meant to be in all inclusive list EKG interpreted by me (3pts min.). @ EKG interpretation, sinus bradycardia, rate 54 bpm OK interval 153 ms QT/QTc 453/440 ms, normal axis, small mount of artifact present, no ST elevations or depressions, no delta waves or Brugada pattern, no ST elevations or depressions or ischemic changes X-rays interpreted by me (1pt min.). The patient reviewed x-ray of the shoulder and chest, on x-ray shoulder I see no evidence of fracture or dislocation, there does appear to be mild joint space narrowing, consistent with possible arthritic changes, chest x-ray shows no acute process, no rib fracture, no cardiomegaly or pneumothorax agrees radiologist interpretations CT interpreted by me (1pt min.). @ -None done U/S interpreted by me (1pt. min.). @ -None done What testing was considered but not performed or refused? (CT, X-rays, U/S, labs)? Why? @ -None What meds were considered but not given or refused? Why? @ -None Did you discuss the management of the patient with other professionals (professionals i.e. Dr., PA, DECORATING INSTRUCTOR, lab, RT, psych nurse, social director, manager multimedia, teacher, chief innovation officer, case finisher)? Give summary @ -No Was smoking cessation discussed for >3mins.? @ -No Was critical care preformed (if so, how long)? @ -No Were there social determinants of health that impacted care today? How? (Homelessness, low income, unemployed, alcoholism, drug addiction, transportation, low edu. Level, literacy, decrease access to med. care, [facility], rehab)? @ -No Was there de-escalation of care discussed even if they declined (Discuss DNR or withdrawal of care, Hospice)? @ -No What co-morbidities impacted this encounter? (DM, HTN, Smoking, COPD, CAD, Cancer, CVA, ARF, Chemo, Hep., AIDS, mental health diagnosis, sleep apnea, morbid obesity)? @ -None Was patient admitted / discharged? Hospital course, mention meds given and route, prescriptions, significant lab abnormalities, going to OR and other pertinent info. @Discharged-patient is a pleasant 53-year-old male who presented today for left shoulder pain. He was initially seen and assessed by triage provider, ATP labs were entered. Patient initially seen and assessed myself in waiting room due to bed shortage/multiple boarding patients in the emergency department. I obtained patient's permission to obtain history and performed physical exam in the waiting room. He was agreeable. Physical exam findings as above. Discussed with patient reassuring plain films, reassuring labs thus far. His troponin, presumably ordered by triage provider at a consideration that shoulder pain could be an atypical symptom of ACS, is currently pending though, given pain with range of motion, x-ray findings, physical exam findings, I am more suspicious that pain is musculoskeletal in nature. I reviewed patient's EKG, interpretation as above, I see no ischemic changes. Troponin was undetectable. Given patient has spent a prolonged amount of time in the waiting room while here in emergency department I gave patient the option of treating his pain and discharge afterwards, or treating his pain and observation in the ER to ensure improvement of pain. Patient preferred treatment with pain medications and discharge. In my medical judgment there is currently no evidence of an immediate life- threatening or surgical condition. Discharge is therefore indicated at this time. Discharge treatment instructions, follow up instructions, and appropriate emergency department return precautions were discussed with the patient and/or medical decision maker. Patient and/or medical decision maker expressed understanding of and agreed with the treatment plan, follow up instructions, and emergency department return precaution. All patient's and/or medical decision maker's questions were answered. Undiagnosed new problem with uncertain prognosis? @ -No Drug Therapy requiring intensive monitoring for toxicity (Heparin, Nitro, Insulin, Cardizem)? @ -No Were any procedures done? @ -No Diagnosis/symptom? @Left shoulder pain Acute, or Chronic, or Acute on Chronic? @Acute Uncomplicated (without systemic symptoms) or Complicated (systemic symptoms)? @Uncomplicated Side effects of treatment? @ -No Exacerbation, Progression, or Severe Exacerbation? @ -No Poses a threat to life or bodily function? How? (Chest pain, [place], [place], pneumonia, PE, COPD, DKA, ARF, appy, cholecystitis, CVA, Diverticulitis, Homicidal, Suicidal, threat to staff... and all critical care pts) @ -No (Lucie Riojas) - Lab Data Lab Results 09/19/24 09/19/24 09/19/24 Range/Units 19:05 19:05 19:05 WBC 12.3 H (3.8-10.6) k/uL RBC 5.35 (4.30-5.90) m/uL Hgb 14.8 (13.0-17.5) gm/dL Hct 45.7 (39.0-53.0) % MCV 85.4 (80.0-100.0) fL MCH 27.7 (25.0-35.0) pg MCHC 32.4 (31.0-37.0) g/dL RDW 12.6 (11.5-15.5) % Plt Count 381 (150-450) k/uL MPV 6.5 Neutrophils % 61 % Lymphocytes % 26 % Monocytes % 7 % Eosinophils % 3 % Basophils % 1 % Neutrophils # 7.5 (1.3-7.7) k/uL Lymphocytes # 3.2 (1.0-4.8) k/uL Monocytes # 0.8 (0-1.0) k/uL Eosinophils # 0.4 (0-0.7) k/uL Basophils # 0.1 (0-0.2) k/uL PT 10.3 (10.0-12.5) sec INR 0.9 (<1.2) APTT 21.6 L (22.0-30.0) sec Sodium 136 L (137-145) mmol/L Potassium 4.2 (3.5-5.1) mmol/L Chloride 100 (98-107) mmol/L Carbon Dioxide 25 (22-30) mmol/L Anion Gap 11 mmol/L BUN 14 (9-20) mg/dL Creatinine 0.99 (0.66-1.25) mg/dL Est GFR (CKD-EPI)AfAm >90 (>60 ml/min/1.73 sqM) Est GFR (CKD-EPI)NonAf 86 (>60 ml/min/1.73 sqM) Glucose 112 H (74-99) mg/dL Calcium 9.8 (8.4-10.2) mg/dL Total Bilirubin 1.3 (0.2-1.3) mg/dL AST 26 (17-59) U/L ALT 25 (4-49) U/L Alkaline Phosphatase 79 (38-126) U/L Troponin I (0.000-0.034) ng/mL Total Protein 7.2 (6.3-8.2) g/dL Albumin 4.3 (3.5-5.0) g/dL 09/19/24 Range/Units 19:05 WBC (3.8-10.6) k/uL RBC (4.30-5.90) m/uL Hgb (13.0-17.5) gm/dL Hct (39.0-53.0) % MCV (80.0-100.0) fL MCH (25.0-35.0) pg MCHC (31.0-37.0) g/dL RDW (11.5-15.5) % Plt Count (150-450) k/uL MPV Neutrophils % % Lymphocytes % % Monocytes % % Eosinophils % % Basophils % % Neutrophils # (1.3-7.7) k/uL Lymphocytes # (1.0-4.8) k/uL Monocytes # (0-1.0) k/uL Eosinophils # (0-0.7) k/uL Basophils # (0-0.2) k/uL PT (10.0-12.5) sec INR (<1.2) APTT (22.0-30.0) sec Sodium (137-145) mmol/L Potassium (3.5-5.1) mmol/L Chloride (98-107) mmol/L Carbon Dioxide (22-30) mmol/L Anion Gap mmol/L BUN (9-20) mg/dL Creatinine (0.66-1.25) mg/dL Est GFR (CKD-EPI)AfAm (>60 ml/min/1.73 sqM) Est GFR (CKD-EPI)NonAf (>60 ml/min/1.73 sqM) Glucose (74-99) mg/dL Calcium (8.4-10.2) mg/dL Total Bilirubin (0.2-1.3) mg/dL AST (17-59) U/L ALT (4-49) U/L Alkaline Phosphatase (38-126) U/L Troponin I <0.012 (0.000-0.034) ng/mL Total Protein (6.3-8.2) g/dL Albumin (3.5-5.0) g/dL Disposition <Naima Enciso - Last Filed: 09/19/24 17:43> Is patient prescribed a controlled substance at d/c from ED?: No <Lucie Riojas - Last Filed: 09/22/24 15:02> Clinical Impression: Left shoulder pain Disposition: HOME SELF-CARE Condition: Good Instructions (If sedation given, give patient instructions): Shoulder Pain (ED) Additional Instructions: Every disease is a spectrum and a small chance still exists that a serious condition could develop, for this reason, please monitor yourself closely for new, changing or worsening symptoms, symptoms that do not improve in 72 hours, redness, swelling, uncontrollable pain of the shoulder, new numbness or weakness, pain or difficulty in breathing inability to tolerate/keep down fluids or your medications, inability to follow up with outpatient providers as instructed and should you experience these symptoms or should you have any further concerns for your wellbeing please return to the ED or call 911 immediately. Your pain can be treated with ibuprofen and acetaminophen. You can take up to 400-600 mg of ibuprofen (Advil, Motrin) 3 times daily (every 8 hours) but can also use lower doses if this relieves your pain. Some people prefer naproxen (Aleve, Naprosyn) which can be taken in doses of 500 mg up to twice a day. Do not take both of these medicines together, and do not combine either with ketorolac (Toradol), meloxicam (Mobic), or indomethacin (Tivorbex). Some people can develop stomach discomfort with higher doses of either ibuprofen or naproxen, if this develops decrease your dose or stop taking it. If you need to take this dose daily for more than a week, please schedule an appointment for re-evaluation with your PCP. Please take these medications with food. You can take up to 1000 mg of acetaminophen (Tylenol) every 6 hours. Be careful as this is included in some medicines like Nyquil, Farnham, Percocet, Vicodin, STANBACK, Goody's Powders, and Excedrin. You can also use lidocaine patches for topical pain. You can purchase 4% patches over the counter at most drug stores. These can be helpful for pain from your muscles or bones. Please call your orthopedic surgeon as soon as possible for follow-up within the next week regarding today's visit. PLEASE call your primary care physician as soon as possible to arrange / discuss plan for followup appointment. Appointment in the next 1-3 days is strongly encouraged if possible. PLEASE let us know here before you leave if there is anything further we can do to be of any assistance. Take care and feel Better! Referrals: Mandeep Barnes, [Primary Care Provider] - 1-2 days
--- NOTE | 2024-09-19 18:40 | XR ---
EXAMINATION TYPE: XR chest 2V DATE OF EXAM: 09/19/2024 6:35 PM COMPARISON: Chest x-ray October 13, 2023 CLINICAL INDICATION: Male, 53 years old with history of left shoulder and chest pain, TECHNIQUE: Frontal and lateral views of the chest are obtained. FINDINGS: There is no focal air space opacity, pleural effusion, or pneumothorax seen. The cardiac silhouette size remains within normal limits. The osseous structures are intact. IMPRESSION: No acute cardiopulmonary process. [facility], , 09/19/2024 6:38 PM
--- NOTE | 2024-09-19 18:41 | XR ---
EXAMINATION TYPE: XR shoulder complete LT DATE OF EXAM: 09/19/2024 6:35 PM COMPARISON: None. CLINICAL INDICATION: Male, 53 years old with history of left shoulder pain, pain TECHNIQUE: Three views of the left shoulder are obtained. FINDINGS: There is no acute fracture/dislocation evident in the left shoulder. Moderate narrowing a nd superior capsular hypertrophy at the acromioclavicular joint. Glenohumeral joint is preserved. The visualized ribs are intact and unremarkable. IMPRESSION: As above. [facility], , 09/19/2024 6:39 PM
[2024-09-19 19:18] LABS: Basophils # (A) 0.1 k/uL (0-0.2); Basophils % (A) 1 %; Eosinophils # (A) 0.4 k/uL (0-0.7); Eosinophils % (A) 3 %; HCT 45.7 % (39.0-53.0); HGB 14.8 gm/dL (13.0-17.5); Lymphocytes # (A) 3.2 k/uL (1.0-4.8); Lymphocytes % (A) 26 %; MCH 27.7 pg (25.0-35.0); MCHC 32.4 g/dL (31.0-37.0); MCV 85.4 fL (80.0-100.0); Mean Platelet Volume 6.5; Monocytes # (A) 0.8 k/uL (0-1.0); Monocytes % (A) 7 %; Neutrophils # (A) 7.5 k/uL (1.3-7.7); Neutrophils % (A) 61 %; Platelet Count 381 k/uL (150-450); RBC 5.35 m/uL (4.30-5.90); RDW 12.6 % (11.5-15.5); WBC 12.3 k/uL (3.8-10.6)
[2024-09-19 19:30] LABS: ALT 25 U/L (4-49); AST 26 U/L (17-59); African American GFR (CKD) >90 (>60 ml/min/1.73 sqM); Albumin 4.3 g/dL (3.5-5.0); Alkaline Phosphatase 79 U/L (38-126); Anion Gap 11 mmol/L; Blood Urea Nitrogen 14 mg/dL (9-20); Calcium 9.8 mg/dL (8.4-10.2); Carbon Dioxide 25 mmol/L (22-30); Chloride 100 mmol/L (98-107); Glucose 112 mg/dL (74-99); Non-African American GFR(CKD) 86 (>60 ml/min/1.73 sqM); Potassium 4.2 mmol/L (3.5-5.1); Sodium 136 mmol/L (137-145); Total Bilirubin 1.3 mg/dL (0.2-1.3); Total Protein 7.2 g/dL (6.3-8.2)
[2024-09-19 19:47] LABS: INR 0.9 (<1.2); Partial Thromboplastin Time 21.6 sec (22.0-30.0); Prothrombin Time 10.3 sec (10.0-12.5)
[2024-09-19] MEDS: ORPHENADRINE 30 MG/ML 2 ML VIAL IVP STA (19:54)
[2024-09-19] MEDS: KETOROLAC 15 MG/ML 1 ML VIAL IVP STA (19:54)
[2024-09-19 20:04] VITALS: BP 149/93; PULSE 57; RESP 17
== END 2024-09-19 20:04 | disposition home or self-care (01) ==
LOC: EC 16:41
DX: M25.512 Pain in left shoulder (principal)
CPT/HCPCS: 99284 ×2; 96374 ×2; 96375 ×2; 36415; 93005; 80053; 84484; 85025; 85610; 85730; 73030; 71046; J2360; J1885